=== PATIENT | male | born 2000 | race Caucasian/White ===

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

== ENCOUNTER → 2020-08-29 | Outpatient (CLI) | payer BC ==
--- NOTE | 2020-08-29 22:42 | REP ---
INDICATION: SCROTAL MASS COMPARISON: None. TECHNIQUE: Arciniega scale and color Doppler evaluation using linear and curved array transducer with color Doppler evaluation. FINDINGS: The testicles and epididymi are relatively normal in contour, size, echogenicity, vascularity and overall appearance. There is no evidence for intratesticular mass lesion, infectious/inflammatory process, or torsion. No obvious hydroceles. Patient's palpable mass corresponds to normal left epididymal tail and left-sided varicoceles measuring up to approximately 3 mm on Valsalva. Right testicle measures 5.2 x 2.6 x 2.9 cm. Left testicle measures 4.8 x 2.4 x 2.8 cm. IMPRESSION: Palpable mass corresponds to left epididymal tail and left-sided varicoceles up to 3 mm. <Electronically signed by Poli Dexter > 08/29/20 [id number]
== END ==
LOC: M RAD 12:27
PROVIDERS: ATTEND Family Medicine
DX: N50.89 Other specified disorders of the male genital organs (principal)